=== PATIENT | female | born 1935 | race Native Hawaiian/Other Pacific Islander ===

== ENCOUNTER 2016-08-21 09:22 | Inpatient (IN) | payer OTHER ==
[~2016-08-21 09:22] MED LIST: ACYCLOVIR800 MG OR; ARICEPT ODT10 MG OR; CALCIUM + D600 MG OR; CARB25TA29 PO; CLON0.1T16 PO; DOXE25CA18 PO; ELIQUIS5 MG OR; FURO20TA67 PO; FURO40TA93 PO; HYDR12.54 PO; HYDR25TA60 PO; KLOR-CON M2020 MEQ OR; LIPITOR40 MG PO; MAG-OXIDE400 MG OR; METF500T PO; MULTI VITAMIN D1 TAB PO; NAMENDA XR28 MG OR; OMEP20CA PO; ONDA4TAB3 PO; POTA20TA4 PO; ROBITUSS10 OR; SENNA-PLUS1 TAB OR; SYNTHROID PO; SYNTHROID175 MCG PO; TYLENOL EXTRA500 MG OR; ZANTAC 75 PO
== END 2016-09-21 08:00 | disposition still patient (30) ==
LOC: PAVB 09:22
PROVIDERS: ADMIT Family Medicine
DX: Z51.89 Encounter for other specified aftercare (principal)

== ENCOUNTER 2016-09-21 09:00 | Inpatient (IN) | payer OTHER | END 2016-10-22 10:14 | disposition still patient (30) | LOC: PAVB 09:00 | PROVIDERS: ADMIT Family Medicine | DX: Z51.89 Encounter for other specified aftercare (principal) ==

== ENCOUNTER 2016-10-22 10:33 | Inpatient (IN) | payer OTHER | END 2016-11-19 09:39 | disposition still patient (30) | LOC: PAVB 10:33 | PROVIDERS: ADMIT Family Medicine | DX: Z51.89 Encounter for other specified aftercare (principal) ==

== ENCOUNTER 2016-10-24 06:47 | Outpatient (CLI) | payer OTHER | END 2016-10-24 07:47 | disposition home or self-care (01) | LOC: LAB 06:47 | DX: E11.9 Type 2 diabetes mellitus without complications (principal) | CPT/HCPCS: 36415; 83036 ==

== ENCOUNTER 2016-11-04 05:14 | Outpatient (CLI) | payer OTHER | END 2016-11-04 06:14 | disposition home or self-care (01) | LOC: LAB 05:14 | DX: R19.7 Diarrhea, unspecified (principal) | CPT/HCPCS: 82272; 87045; 87046; 87205; 87328; 87329; 87493; 87798; 87899 ==

== ENCOUNTER 2016-11-06 14:41 | Outpatient (CLI) | payer OTHER ==
[2016-11-06 15:17] LABS: PLATELET COUNT 294 K/uL (152-353)
[2016-11-06 15:34] LABS: POTASSIUM 4.6 mmol/L (3.6-5.2)
== END 2016-11-06 19:18 | disposition home or self-care (01) ==
LOC: LAB 14:41
PROVIDERS: Family Medicine
DX: A04.5 Campylobacter enteritis (principal)
CPT/HCPCS: 80053; 85027

== ENCOUNTER 2016-11-13 03:15 | Outpatient (CLI) | payer OTHER | END 2016-11-13 19:20 | disposition home or self-care (01) | LOC: LAB 03:15 | PROVIDERS: Family Medicine | DX: I10 Essential (primary) hypertension (principal) | CPT/HCPCS: 80053 ==

== ENCOUNTER 2016-11-19 10:22 | Inpatient (IN) | payer OTHER | END 2016-12-20 08:06 | disposition still patient (30) | LOC: PAVB 10:22 | PROVIDERS: ADMIT Family Medicine | DX: Z51.89 Encounter for other specified aftercare (principal) ==

== ENCOUNTER 2016-12-20 09:20 | Inpatient (IN) | payer OTHER | END 2017-01-19 09:08 | disposition still patient (30) | LOC: PAVB 09:20 | PROVIDERS: ADMIT Family Medicine | DX: Z51.89 Encounter for other specified aftercare (principal) ==

== ENCOUNTER 2017-01-05 16:28 | Outpatient (CLI) | payer OTHER | END 2017-01-05 19:29 | disposition home or self-care (01) | LOC: LAB 16:28 | DX: Z16.24 Resistance to multiple antibiotics (principal) | CPT/HCPCS: 87081 ==

== ENCOUNTER 2017-01-14 20:52 | Outpatient (CLI) | payer OTHER | END 2017-01-14 22:00 | disposition home or self-care (01) | LOC: RAD 20:52 → LAB 20:52 | DX: R10.817 Generalized abdominal tenderness (principal); R14.0 Abdominal distension (gaseous) | CPT/HCPCS: 81000; 87088 ==

== ENCOUNTER 2017-01-16 11:05 | Outpatient (CLI) | payer OTHER ==
[2017-01-16 11:28] LABS: POTASSIUM 4.8 mmol/L (3.6-5.2); SODIUM 137 mmol/L (136-145)
== END 2017-01-16 19:10 | disposition home or self-care (01) ==
LOC: LAB 11:05
PROVIDERS: Family Medicine
DX: R10.84 Generalized abdominal pain (principal)
CPT/HCPCS: 36415; 80053; 83735

== ENCOUNTER 2017-01-19 09:45 | Inpatient (IN) | payer OTHER | END 2017-02-19 09:31 | disposition still patient (30) | LOC: PAVB 09:45 | PROVIDERS: ADMIT Family Medicine | DX: Z51.89 Encounter for other specified aftercare (principal) ==

== ENCOUNTER 2017-01-21 11:46 | Outpatient (CLI) | payer OTHER ==
[2017-01-21 11:58] LABS: PLATELET COUNT 234 K/uL (152-353)
[2017-01-21 12:43] LABS: POTASSIUM 4.3 mmol/L (3.6-5.2); SODIUM 139 mmol/L (136-145)
== END 2017-01-21 19:15 | disposition home or self-care (01) ==
LOC: LAB 11:46
PROVIDERS: Family Medicine
DX: E03.9 Hypothyroidism, unspecified (principal); I10 Essential (primary) hypertension; E11.9 Type 2 diabetes mellitus without complications
CPT/HCPCS: 80053; 83036; 84443; 85027

== ENCOUNTER 2017-01-22 11:50 | Outpatient (CLI) | payer OTHER | END 2017-01-22 13:00 | disposition home or self-care (01) | LOC: LAB 11:50 | DX: E03.8 Other specified hypothyroidism (principal) | CPT/HCPCS: 84439 ==

== ENCOUNTER 2017-02-09 04:43 | Outpatient (CLI) | payer OTHER | END 2017-02-09 06:00 | disposition home or self-care (01) | LOC: LAB 04:43 | DX: E83.49 Other disorders of magnesium metabolism (principal) | CPT/HCPCS: 36415; 83735 ==

== ENCOUNTER 2017-02-19 09:47 | Inpatient (IN) | payer OTHER | END 2017-03-21 15:20 | disposition still patient (30) | LOC: PAVB 09:47 | PROVIDERS: ADMIT Family Medicine | DX: Z51.89 Encounter for other specified aftercare (principal) ==

== ENCOUNTER 2017-02-23 10:42 | Outpatient (CLI) | payer OTHER | END 2017-02-23 19:48 | disposition home or self-care (01) | LOC: LAB 10:42 | DX: M81.0 Age-related osteoporosis without current pathological fracture (principal) | CPT/HCPCS: 82310 ==

== ENCOUNTER 2017-03-21 15:33 | Inpatient (IN) | payer OTHER ==
[2017-03-31] MEDS ORDERED: FERR325T5 PO (17:36)
[2017-03-31] MEDS ORDERED: LEVO0.0529 PO (17:37)
[2017-03-31] MEDS ORDERED: SIMV10TA PO (17:38)
[2017-03-31] MEDS ORDERED: ASCO500T18 PO (17:39)
== END 2017-04-21 09:41 | disposition still patient (30) ==
LOC: PAVB 15:33
PROVIDERS: ADMIT Family Medicine
DX: Z51.89 Encounter for other specified aftercare (principal)

== ENCOUNTER 2017-03-31 14:53 | Outpatient (CLI) | payer OTHER ==
[2017-03-31 15:07] LABS: PLATELET COUNT 155 K/uL (152-353)
[2017-03-31 15:18] LABS: POTASSIUM 4.6 mmol/L (3.6-5.2)
[2017-03-31] MEDS ORDERED: FERR325T5 PO (17:36)
[2017-03-31] MEDS ORDERED: LEVO0.0529 PO (17:37)
[2017-03-31] MEDS ORDERED: SIMV10TA PO (17:38)
[2017-03-31] MEDS ORDERED: ASCO500T18 PO (17:39)
== END 2017-03-31 19:39 | disposition home or self-care (01) ==
LOC: LAB 14:53
PROVIDERS: Family Medicine
DX: R41.82 Altered mental status, unspecified (principal); R50.9 Fever, unspecified
CPT/HCPCS: 80053; 81000; 83735; 85027; 87077; 87086; 87088; 87186

== ENCOUNTER 2017-03-31 16:27 | Inpatient (IN) | payer OTHER ==
[~2017-03-31] VITALS: Ht 162.6 cm; Wt 71.0 kg
[2017-03-31 16:30] VITALS: BP 138/86; TEMP 100
[2017-03-31] MEDS ORDERED: FERR325T5 PO (17:36)
[2017-03-31] MEDS ORDERED: LEVO0.0529 PO (17:37)
[2017-03-31] MEDS ORDERED: SIMV10TA PO (17:38)
[2017-03-31] MEDS ORDERED: ASCO500T18 PO (17:39)
[2017-03-31 18:36] VITALS: BP 143/82; TEMP 97.7; Ht 162.6 cm; Wt 71.0 kg
[2017-03-31 20:00] VITALS: BP 138/75; TEMP 97.5
[2017-04-01 00:14] VITALS: BP 146/73; TEMP 98.2
[2017-04-01 04:00] VITALS: BP 158/75; TEMP 97.6
[2017-04-01 06:39] LABS: PLATELET COUNT 129 K/uL (152-353)
[2017-04-01 07:16] LABS: POTASSIUM 3.7 mmol/L (3.6-5.2)
[2017-04-01 08:00] VITALS: BP 146/92; TEMP 99.7
[2017-04-01 12:00] VITALS: BP 140/92; TEMP 99.3
[2017-04-01 16:00] VITALS: BP 133/73; TEMP 99.6
[2017-04-01 20:27] VITALS: BP 149/78; TEMP 99
[2017-04-02 00:16] VITALS: BP 121/54; TEMP 98.4
[2017-04-02 04:00] VITALS: BP 119/67; TEMP 97.7
[2017-04-02 05:20] LABS: PLATELET COUNT 125 K/uL (152-353)
[2017-04-02 08:00] VITALS: BP 116/53; TEMP 98.1
[2017-04-02 11:31] LABS: POTASSIUM 3.5 mmol/L (3.6-5.2)
[2017-04-02 12:00] VITALS: BP 110/62; TEMP 98.2
[2017-04-02 15:54] VITALS: BP 119/62; TEMP 98.6
[2017-04-02 20:00] VITALS: BP 135/66; TEMP 98.7
[2017-04-03] VITALS: BP 134/74; TEMP 98.5
[2017-04-03 04:00] VITALS: BP 153/71; TEMP 99.2
[2017-04-03 05:16] LABS: PLATELET COUNT 133 K/uL (152-353)
[2017-04-03 05:35] LABS: POTASSIUM 4.6 mmol/L (3.6-5.2)
[2017-04-03 07:55] VITALS: BP 157/73; TEMP 98.4
[2017-04-03 11:50] VITALS: BP 145/86; TEMP 98.1
[2017-04-03 15:39] VITALS: BP 147/67; TEMP 97.9
[2017-04-03 20:00] VITALS: BP 153/50; TEMP 98.2
[2017-04-04] VITALS: BP 123/64; TEMP 97.5
[2017-04-04 04:00] VITALS: BP 132/71; TEMP 97.9
[2017-04-04 06:50] LABS: PLATELET COUNT 135 K/uL (152-353)
[2017-04-04 07:28] LABS: POTASSIUM 4.5 mmol/L (3.6-5.2); SODIUM 145 mmol/L (136-145)
[2017-04-04 08:00] VITALS: BP 143/66; TEMP 98
== END 2017-04-04 12:48 | DRG 689 ==
LOC: ED 16:27 → MED/SURG 17:15
PROVIDERS: Emergency Medicine
DX: N39.0 Urinary tract infection, site not specified (principal); G93.41 Metabolic encephalopathy; E87.0 Hyperosmolality and hypernatremia; E86.0 Dehydration; B96.20 Unspecified Escherichia coli [E. coli] as the cause of diseases classified elsewhere; I48.91 Unspecified atrial fibrillation; I10 Essential (primary) hypertension; E03.8 Other specified hypothyroidism
CPT/HCPCS: 36415; 80053; 82436; 82570; 83735; 84300; 84443; 84540; 85027; 87015; 87045; 87205; 87324; 87328; 87329; 87449; 87899; 96365; 96372; 99284; J0696; J1650; J3490

== ENCOUNTER 2017-04-21 10:02 | Inpatient (IN) | payer OTHER ==
[~2017-04-21 10:02] MED LIST changes: +ASCO500T18 PO; +FERR325T5 PO; +LEVO0.0529 PO; +SIMV10TA PO
== END 2017-05-22 08:40 | disposition still patient (30) ==
LOC: PAVB 10:02
PROVIDERS: ADMIT Family Medicine
DX: Z51.89 Encounter for other specified aftercare (principal)

== ENCOUNTER 2017-04-22 06:37 | Outpatient (CLI) | payer OTHER | END 2017-04-22 19:40 | disposition home or self-care (01) | LOC: LAB 06:37 | DX: E11.9 Type 2 diabetes mellitus without complications (principal) | CPT/HCPCS: 36415; 83036 ==

== ENCOUNTER 2017-05-05 14:38 | Outpatient (CLI) | payer OTHER | END 2017-05-05 15:40 | disposition home or self-care (01) | LOC: LAB 14:38 | DX: N89.8 Other specified noninflammatory disorders of vagina (principal); R50.9 Fever, unspecified | CPT/HCPCS: 81000; 87070; 87077; 87186 ==

== ENCOUNTER 2017-05-06 17:13 | Outpatient (CLI) | payer OTHER ==
[2017-05-06 18:39] LABS: PLATELET COUNT 286 K/uL (152-353)
[2017-05-06 18:54] LABS: POTASSIUM 4.4 mmol/L (3.6-5.2); SODIUM 144 mmol/L (136-145)
== END 2017-05-06 19:58 | disposition home or self-care (01) ==
LOC: RAD 17:13 → LABW 17:13
PROVIDERS: Family Medicine
DX: R10.84 Generalized abdominal pain (principal); R50.9 Fever, unspecified
CPT/HCPCS: 80053; 82150; 83690; 83735; 85027

== ENCOUNTER 2017-05-06 21:25 | Outpatient (CLI) | payer OTHER | END 2017-05-06 21:51 | disposition home or self-care (01) | LOC: LAB 21:25 | DX: R10.84 Generalized abdominal pain (principal); R50.9 Fever, unspecified | CPT/HCPCS: 82272; 87015; 87040; 87045; 87205; 87324; 87328; 87329; 87449; 87899 ==

== ENCOUNTER 2017-05-22 09:02 | Inpatient (IN) | payer OTHER | END 2017-06-21 10:28 | disposition still patient (30) | LOC: PAVB 09:02 | PROVIDERS: ADMIT Internal Medicine | DX: R13.12 Dysphagia, oropharyngeal phase (principal); Z93.1 Gastrostomy status; Z43.1 Encounter for attention to gastrostomy; Z87.440 Personal history of urinary (tract) infections; M62.81 Muscle weakness (generalized); I51.7 Cardiomegaly; G20 Parkinson's disease; F20.0 Paranoid schizophrenia; M21.6X9 Other acquired deformities of unspecified foot; F01.51 Vascular dementia, unspecified severity, with behavioral disturbance ==

== ENCOUNTER 2017-06-13 18:10 | Inpatient (IN) | payer OTHER ==
[~2017-06-13] VITALS: Ht 165.1 cm; Wt 61.3 kg
[2017-06-13 18:15] VITALS: BP 125/62; TEMP 97.9
[2017-06-13 21:19] VITALS: BP 119/61; TEMP 97.6
[2017-06-13 23:08] VITALS: BP 114/59; TEMP 97.6
[2017-06-14] VITALS (16 sets, daily range): BP systolic 114–187; BP diastolic 49–95; TEMP 97.5–99.3; Ht 165.1 cm; Wt 61.3 kg
[2017-06-14 05:21] LABS: PLATELET COUNT 113 K/uL (152-353)
[2017-06-14 19:27] LABS: POTASSIUM 3.5 mmol/L (3.6-5.2)
[2017-06-15] VITALS (25 sets, daily range): BP systolic 142–170; BP diastolic 48–87; TEMP 97.2–99.5
[2017-06-15 03:43] LABS: POTASSIUM 3.1 mmol/L (3.6-5.2)
[2017-06-15 06:40] LABS: PLATELET COUNT 103 K/uL (152-353)
[2017-06-15 06:49] LABS: POTASSIUM 3.1 mmol/L (3.6-5.2)
[2017-06-16] VITALS (23 sets, daily range): BP systolic 91–143; BP diastolic 44–84; TEMP 97.9–98.7
[2017-06-16 06:28] LABS: PLATELET COUNT 114 K/uL (152-353)
[2017-06-16 07:01] LABS: POTASSIUM 2.4 mmol/L (3.6-5.2)
[2017-06-16 19:15] LABS: POTASSIUM 3.5 mmol/L (3.6-5.2)
[2017-06-17] VITALS (34 sets, daily range): BP systolic 92–157; BP diastolic 48–76; TEMP 97.9–99.3
[2017-06-17 06:30] LABS: PLATELET COUNT 82 K/uL (152-353)
[2017-06-17 08:49] LABS: POTASSIUM 2.6 mmol/L (3.6-5.2)
[2017-06-18] VITALS (24 sets, daily range): BP systolic 98–162; BP diastolic 58–92; TEMP 97.9–99.2
[2017-06-18 07:02] LABS: PLATELET COUNT 125 K/uL (152-353)
[2017-06-18 07:29] LABS: POTASSIUM 2.9 mmol/L (3.6-5.2)
[2017-06-19] VITALS (14 sets, daily range): BP systolic 117–164; BP diastolic 45–87; TEMP 98.3–98.7
[2017-06-19 06:50] LABS: PLATELET COUNT 184 K/uL (152-353)
[2017-06-19 07:01] LABS: POTASSIUM 3.5 mmol/L (3.6-5.2); SODIUM 145 mmol/L (136-145)
== END 2017-06-19 13:55 | DRG 640 ==
LOC: ED 18:10 → MED/SURG 20:45 → ICU 06-14 16:35
PROVIDERS: Family Medicine; Internal Medicine; ADMIT Emergency Medicine
PROC: 0DH63UZ Insertion of Feeding Device into Stomach, Percutaneous Approach (ICD-10-PCS; principal; 2017-06-16)
DX: E87.0 Hyperosmolality and hypernatremia (principal); K56.2 Volvulus; N39.0 Urinary tract infection, site not specified; K56.69 Other intestinal obstruction; I10 Essential (primary) hypertension; E03.8 Other specified hypothyroidism; G30.8 Other Alzheimer's disease; F02.80 Dementia in other diseases classified elsewhere, unspecified severity, without behavioral disturbance, psychotic disturbance, mood disturbance, and anxiety; K21.9 Gastro-esophageal reflux disease without esophagitis; E11.9 Type 2 diabetes mellitus without complications; K52.89 Other specified noninfective gastroenteritis and colitis; E87.6 Hypokalemia; Z86.73 Personal history of transient ischemic attack (TIA), and cerebral infarction without residual deficits; B96.20 Unspecified Escherichia coli [E. coli] as the cause of diseases classified elsewhere; E86.0 Dehydration; R41.82 Altered mental status, unspecified
CPT/HCPCS: 36415; 36591; 51702; 74022; 80048; 80053; 81000; 82272; 82962; 83735; 84100; 84443; 84478; 85027; 87040; 87077; 87086; 87088; 87186; 93005; 94760; 96365; 99284; J0610; J0696; J1450; J2001; J2704; J3010; J3411; J3475; J3480; J3490; J7120

== ENCOUNTER 2017-06-21 10:33 | Inpatient (IN) | payer OTHER | END 2017-07-22 12:55 | disposition still patient (30) | LOC: PAVB 10:33 | PROVIDERS: ADMIT Internal Medicine | DX: R13.12 Dysphagia, oropharyngeal phase (principal); Z93.1 Gastrostomy status; Z43.1 Encounter for attention to gastrostomy; Z87.440 Personal history of urinary (tract) infections; M62.81 Muscle weakness (generalized); I51.7 Cardiomegaly; G20 Parkinson's disease; F20.0 Paranoid schizophrenia; M21.6X9 Other acquired deformities of unspecified foot; F01.51 Vascular dementia, unspecified severity, with behavioral disturbance ==

== ENCOUNTER 2017-07-22 13:33 | Inpatient (IN) | payer OTHER | END 2017-08-21 09:17 | disposition still patient (30) | LOC: PAVB 13:33 | PROVIDERS: ADMIT Internal Medicine ==

== ENCOUNTER 2017-07-27 08:43 | Outpatient (CLI) | payer OTHER ==
[2017-07-27 08:58] LABS: PLATELET COUNT 308 K/uL (152-353)
[2017-07-27 09:26] LABS: POTASSIUM 4.6 mmol/L (3.6-5.2); SODIUM 137 mmol/L (136-145)
== END 2017-07-27 09:45 | disposition home or self-care (01) ==
LOC: LAB 08:43
PROVIDERS: Internal Medicine
DX: E11.9 Type 2 diabetes mellitus without complications (principal); I10 Essential (primary) hypertension; E03.8 Other specified hypothyroidism; M81.0 Age-related osteoporosis without current pathological fracture
CPT/HCPCS: 80053; 80061; 83036; 83735; 84443; 85027

== ENCOUNTER 2017-07-29 17:31 | Outpatient (CLI) | payer OTHER | END 2017-07-29 19:03 | disposition home or self-care (01) | LOC: LAB 17:31 | DX: R19.5 Other fecal abnormalities (principal) | CPT/HCPCS: 87015; 87045; 87205; 87324; 87328; 87329; 87449; 87899 ==

== ENCOUNTER 2017-07-30 13:19 | Outpatient (CLI) | payer OTHER | END 2017-07-30 19:14 | disposition home or self-care (01) | LOC: RAD 13:19 | DX: Z43.1 Encounter for attention to gastrostomy (principal) ==

== ENCOUNTER 2017-07-31 16:32 | Inpatient (IN) | payer OTHER ==
[~2017-07-31] VITALS: Ht 165.1 cm; Wt 67.2 kg
--- NOTE | 2017-07-31 16:17 | NUR ---
Pt. ADMITTED TO ROOM [address] A[address]B. ABD DISTENDED AND FIRM.
[2017-07-31 18:36] LABS: PLATELET COUNT 319 K/uL (152-353)
[2017-07-31 18:48] LABS: POTASSIUM 4.4 mmol/L (3.6-5.2); SODIUM 142 mmol/L (136-145)
[2017-07-31 18:57] VITALS: BP 150/73; TEMP 98.2; Ht 165.1 cm; Wt 67.2 kg
[2017-07-31 20:00] VITALS: BP 144/78; TEMP 98.3
--- NOTE | 2017-07-31 20:57 | NUR ---
1745 TWO SMALL 0.5 INCH LINEAR PRESSURE SORES NOTED TO RIGHT HEEL UPON ADMISSION ASSESSMENT. UNABLE TO STAGE DUE TO ESCHAR PRESENT. NO DRAINAGE NOTED. OLD SMALL LINEAR SKIN TEAR NOTED TO LEFT FA. INTACT WITH STERI STRIP. NOTIFIED PRIMARY NURSE, RENÉ MCFADDEN RN.
[2017-08-01] VITALS: BP 171/72; TEMP 98.8
[2017-08-01 04:00] VITALS: BP 182/84; TEMP 99
[2017-08-01 08:00] VITALS: BP 133/56; TEMP 98.9
[2017-08-01 12:00] VITALS: BP 161/73; TEMP 98.8
[2017-08-01 16:00] VITALS: BP 178/56; TEMP 98.9
[2017-08-01 20:00] VITALS: BP 177/85; TEMP 99.2
[2017-08-02] VITALS: BP 156/94; TEMP 99.3
[2017-08-02 04:00] VITALS: BP 166/93; TEMP 99.6
--- NOTE | 2017-08-02 07:30 | NUR ---
DR. AYOUB HERE TO SEE PATIENT. NEW ORDERS NOTED. PATIENT IS RESTING IN BED. PATIENT IS ALERT AND MAKES EYE CONTACT. NO DISTRESS OR SIGNS OF DISCOMFORT.
[2017-08-02 08:00] VITALS: BP 123/81; TEMP 98.8
[2017-08-02 09:12] LABS: POTASSIUM 3.3 mmol/L (3.6-5.2); SODIUM 141 mmol/L (136-145)
--- NOTE | 2017-08-02 09:30 | NUR ---
PATIENT'S SON IS AT BEDSIDE. EXPLAINED TO HIM THE PLAN OF CARE. HE VERBALIZES UNDERSTANDING AND IS IN AGREEMENT.
[2017-08-02 09:45] LABS: PLATELET COUNT 374 K/uL (152-353)
[2017-08-02 12:00] VITALS: BP 146/61; TEMP 98.6
[2017-08-02 16:00] VITALS: BP 149/64; TEMP 97.4
[2017-08-02 20:00] VITALS: BP 139/67; TEMP 98.8
[2017-08-03] VITALS: BP 140/81; TEMP 99.2
[2017-08-03 04:00] VITALS: BP 139/65; TEMP 98.9
[2017-08-03 05:24] LABS: PLATELET COUNT 288 K/uL (152-353)
[2017-08-03 05:35] LABS: POTASSIUM 3.1 mmol/L (3.6-5.2); SODIUM 138 mmol/L (136-145)
[2017-08-03 08:00] VITALS: BP 128/84; TEMP 98
--- NOTE | 2017-08-03 08:18 | NUR ---
PT REPOSTITIONED TO LEFT SIDE AND BRIEF CHANGED AT THIS TIME. (VOID X1 AND SMALL BM X1, DARK/GREEN IN COLOR) NAD NOTED.
--- NOTE | 2017-08-03 10:30 | NUR ---
DR. AYOUB HERE TO SEE PT. NEW ORDERS WROTE AND FOLLOWED OUT.
--- NOTE | 2017-08-03 10:50 | NUR ---
IV SITE LEAKING SO IV D/C'D. DR AYOUB STATED TO WAIT BEFORE RESTARTING IV B/C PT MAY BE GOING BACK [facility].
--- NOTE | 2017-08-03 11:30 | NUR ---
PT TOLERATED FEEDING WELL. (1/2 CAN OF ENSURE PLUS) BREIF CHANGED (VOID X1 AND STOOL X1, STOOL DARK IN COLOR AND LOOSE IN CONSISTANCY). BED BATH GIVEN, MOUTH CARE COMPLETE AND LINEN CHANGED. PT TOLERATED WELL AND NAD NOTED.
[2017-08-03 12:00] VITALS: BP 114/72; TEMP 98.1
[2017-08-03 16:00] VITALS: BP 116/84; TEMP 98.8
[2017-08-03 20:11] VITALS: TEMP 98.8
[2017-08-04] VITALS: BP 196/91; TEMP 99.4
--- NOTE | 2017-08-04 01:30 | NUR ---
08/03/17 2100 ENSURE 1/2 CAN GIVEN PER G-TUBE WITH 120ML FLUSH TOLERATED WELL.CC 08/03/17 2300 TURNED AND REPOSTIONED BRIEF CAHNGED WITH CLEAR URINE LG AMOUNT TOLERATED WELL.CC
--- NOTE | 2017-08-04 01:38 | NUR ---
08/04/17 0130 G-TUBE FEEDING GIVEN ENSURE 1/2 CAN FLUSED WITH 60ML. TOLERATED WELL.CC
[2017-08-04 04:00] VITALS: BP 144/77; TEMP 99.1
--- NOTE | 2017-08-04 06:34 | NUR ---
08/04/17 0500 PEG TUBE FEEDING GIVEN FLUSHED WITH 60ML WATER TOLERATED WELL.CC 08/04/17 0620 TURNED AND REPOSTIONED CHANGED BRIEF WITH MODERATE STOOL AND URINE. MOUTHCARE GIVEN VASELINE APPLIED TO LIPS.CC
[2017-08-04 07:58] VITALS: BP 151/74; TEMP 99.23
--- NOTE | 2017-08-04 08:00 | NUR ---
DR AYOUB MADE ROUNDS WITH PT. STATES PT WILL STAY ANOTHER NIGHT AND POSSIBLY [facility].
--- NOTE | 2017-08-04 08:15 | NUR ---
PT TOLERATED FEEDING THROUGH PEG TUBE WELL. (1/2 CAN OF ENSURE PLUS) NO PROBLEMS NOTED.
[2017-08-04 09:33] LABS: SODIUM 135 mmol/L (136-145)
[2017-08-04 12:00] VITALS: BP 145/73; TEMP 99.6
[2017-08-04 16:00] VITALS: BP 134/77; TEMP 98.8
[2017-08-04 20:00] VITALS: BP 143/71; TEMP 98.2
[2017-08-05] VITALS: BP 152/63; TEMP 98.7
--- NOTE | 2017-08-05 01:39 | NUR ---
08/04/17 2100 G-TUBE FEEDING ENSURE PLUS WITH 120ML FLUSH WATER GIVEN TOLERATED WELL.CC
[2017-08-05 04:00] VITALS: BP 116/53; TEMP 97.8
--- NOTE | 2017-08-05 06:29 | NUR ---
08/05/17 0200 G-TUBE FEEDING GIVEN 1/2 CAN ENSURE PLUS FLUSHED WITH TOTAL 120ML WATER TOLERATED WELL.CC 08/05/17 0530 G-TUBE FEEDING GIVEN ENSURE 1/2 CAN GIVEN WITH FLUSH. TURNED REPOSTIONED,CC
--- NOTE | 2017-08-05 06:41 | NUR ---
08/05/17 9908 MOUTHCARE GIVEN TOLERATED WELL.CC
[2017-08-05 08:00] VITALS: BP 142/80; TEMP 98.8
[2017-08-05 11:51] VITALS: BP 145/66; TEMP 98.6
[2017-08-05 16:00] VITALS: BP 148/72; TEMP 98.6
[2017-08-05 20:00] VITALS: BP 154/90; TEMP 99.4
[2017-08-06] VITALS: BP 134/62; TEMP 99.4
[2017-08-06 04:00] VITALS: BP 92/50; TEMP 98.9
[2017-08-06 08:00] VITALS: BP 117/53; TEMP 99
--- NOTE | 2017-08-06 10:30 | NUR ---
REPORT CALLED TO RYNE MORENO.
[2017-08-06 11:52] VITALS: BP 122/64; TEMP 99
--- NOTE | 2017-08-06 12:54 | NUR ---
Pt. CARRIED TO [facility] BED.
== END 2017-08-06 12:20 | disposition home or self-care (01) | DRG 389 ==
LOC: MED/SURG 16:32
PROVIDERS: ADMIT Internal Medicine
DX: K56.7 Ileus, unspecified (principal); K59.39 Other megacolon; Z43.1 Encounter for attention to gastrostomy; G30.8 Other Alzheimer's disease; F02.80 Dementia in other diseases classified elsewhere, unspecified severity, without behavioral disturbance, psychotic disturbance, mood disturbance, and anxiety; I10 Essential (primary) hypertension; K21.9 Gastro-esophageal reflux disease without esophagitis; E03.8 Other specified hypothyroidism; E78.00 Pure hypercholesterolemia, unspecified; M81.8 Other osteoporosis without current pathological fracture; E87.6 Hypokalemia; R19.5 Other fecal abnormalities
CPT/HCPCS: 36415; 80048; 80053; 81000; 82948; 83735; 84100; 84478; 85027; 87015; 87045; 87205; 87324; 87328; 87329; 87449; 87899; 96360; 96361; 96365; 96366; J2765

== ENCOUNTER 2017-08-15 11:39 | Outpatient (CLI) | payer OTHER | END 2017-08-15 12:40 | disposition home or self-care (01) | LOC: RAD 11:39 | DX: R05 Cough (principal); R06.2 Wheezing ==

== ENCOUNTER 2017-08-21 09:31 | Inpatient (IN) | payer OTHER | END 2017-09-21 09:29 | disposition still patient (30) | LOC: PAVB 09:31 | PROVIDERS: ADMIT Internal Medicine ==

== ENCOUNTER 2017-08-27 05:38 | Outpatient (CLI) | payer OTHER | END 2017-08-27 19:06 | disposition home or self-care (01) | LOC: LAB 05:38 | DX: M81.0 Age-related osteoporosis without current pathological fracture (principal); E03.9 Hypothyroidism, unspecified | CPT/HCPCS: 36415; 82310; 84443 ==

== ENCOUNTER 2017-09-21 09:55 | Inpatient (IN) | payer OTHER | END 2017-10-22 09:47 | disposition still patient (30) | LOC: PAVB 09:55 | PROVIDERS: ADMIT Internal Medicine ==

== ENCOUNTER 2017-10-22 10:29 | Inpatient (IN) | payer OTHER | END 2017-11-19 09:17 | disposition still patient (30) | LOC: PAVB 10:29 | PROVIDERS: ADMIT Internal Medicine ==

== ENCOUNTER 2017-10-27 05:53 | Outpatient (CLI) | payer OTHER | END 2017-10-27 20:03 | disposition home or self-care (01) | LOC: LAB 05:53 | DX: E11.9 Type 2 diabetes mellitus without complications (principal) | CPT/HCPCS: 83036 ==

== ENCOUNTER 2017-11-19 09:47 | Inpatient (IN) | payer OTHER | END 2017-12-20 08:00 | disposition still patient (30) | LOC: PAVB 09:47 | PROVIDERS: ADMIT Internal Medicine ==

== ENCOUNTER 2017-11-23 15:35 | Outpatient (CLI) | payer OTHER | END 2017-11-23 19:23 | disposition home or self-care (01) | LOC: LAB 15:35 | DX: L08.89 Other specified local infections of the skin and subcutaneous tissue (principal) | CPT/HCPCS: 87070; 87077; 87185; 87186; 87205 ==

== ENCOUNTER 2017-11-28 14:12 | Outpatient (CLI) | payer OTHER | END 2017-11-28 21:12 | disposition home or self-care (01) | LOC: CT 14:12 | DX: R41.82 Altered mental status, unspecified (principal) | CPT/HCPCS: 81000 ==

== ENCOUNTER 2017-11-29 13:44 | Outpatient (CLI) | payer OTHER ==
[2017-11-29 13:52] LABS: PLATELET COUNT 282 K/uL (152-353)
[2017-11-29 14:07] LABS: POTASSIUM 4.1 mmol/L (3.6-5.2)
== END 2017-11-29 21:35 | disposition home or self-care (01) ==
LOC: LABW 13:44
PROVIDERS: Family Medicine
DX: R41.82 Altered mental status, unspecified (principal)
CPT/HCPCS: 80053; 85027

== ENCOUNTER 2017-12-20 09:00 | Inpatient (IN) | payer OTHER | END 2018-01-19 09:03 | disposition still patient (30) | LOC: PAVB 09:00 | PROVIDERS: ADMIT Internal Medicine ==

== ENCOUNTER 2017-12-24 07:34 | Day surgery (SDC) | payer OTHER | END 2017-12-24 10:05 | LOC: OR 07:34 | PROC: 0DH63UZ Insertion of Feeding Device into Stomach, Percutaneous Approach (ICD-10-PCS; principal; 2017-12-24) | DX: K94.29 Other complications of gastrostomy (principal); K44.9 Diaphragmatic hernia without obstruction or gangrene; K21.9 Gastro-esophageal reflux disease without esophagitis | CPT/HCPCS: J2001; J2704; J3490 ==

== ENCOUNTER 2018-01-19 09:25 | Inpatient (IN) | payer OTHER | END 2018-02-19 08:51 | disposition still patient (30) | LOC: PAVB 09:25 | PROVIDERS: ADMIT Internal Medicine ==

== ENCOUNTER 2018-01-20 06:54 | Outpatient (CLI) | payer OTHER ==
[2018-01-20 08:23] LABS: PLATELET COUNT 242 K/uL (152-353)
[2018-01-20 09:02] LABS: POTASSIUM 4.3 mmol/L (3.6-5.2)
== END 2018-01-20 21:36 | disposition home or self-care (01) ==
LOC: LABW 06:54
PROVIDERS: Internal Medicine
DX: E11.9 Type 2 diabetes mellitus without complications (principal); E03.8 Other specified hypothyroidism; I10 Essential (primary) hypertension
CPT/HCPCS: 80053; 83036; 83735; 84443; 85027

== ENCOUNTER 2018-02-19 09:10 | Inpatient (IN) | payer OTHER | END 2018-03-21 14:18 | disposition still patient (30) | LOC: PAVB 09:10 | PROVIDERS: ADMIT Internal Medicine ==

== ENCOUNTER 2018-02-23 10:23 | Outpatient (CLI) | payer OTHER | END 2018-02-23 22:22 | disposition home or self-care (01) | LOC: LAB 10:23 | DX: M81.0 Age-related osteoporosis without current pathological fracture (principal) | CPT/HCPCS: 82310 ==

== ENCOUNTER 2018-03-21 14:44 | Inpatient (IN) | payer OTHER | END 2018-04-21 08:00 | disposition still patient (30) | LOC: PAVB 14:44 | PROVIDERS: ADMIT Internal Medicine ==

== ENCOUNTER 2018-03-22 03:17 | Outpatient (CLI) | payer OTHER | END 2018-03-22 19:39 | disposition home or self-care (01) | LOC: LAB 03:17 | DX: E03.8 Other specified hypothyroidism (principal) | CPT/HCPCS: 84443 ==

== ENCOUNTER 2018-04-06 13:36 | Outpatient (CLI) | payer OTHER ==
[2018-04-06 14:35] LABS: PLATELET COUNT 331 K/uL (152-353)
== END 2018-04-06 23:50 | disposition home or self-care (01) ==
LOC: LAB 13:36
PROVIDERS: Internal Medicine
DX: R50.9 Fever, unspecified (principal)
CPT/HCPCS: 81000; 85027; 87077; 87086; 87088; 87186

== ENCOUNTER 2018-04-21 09:00 | Inpatient (IN) | payer OTHER | END 2018-05-22 10:17 | disposition still patient (30) | LOC: PAVB 09:00 | PROVIDERS: ADMIT Internal Medicine ==

== ENCOUNTER 2018-04-27 11:36 | Outpatient (CLI) | payer OTHER | END 2018-04-27 19:53 | disposition home or self-care (01) | LOC: LAB 11:36 | DX: E11.9 Type 2 diabetes mellitus without complications (principal) | CPT/HCPCS: 36415; 83036 ==

== ENCOUNTER 2018-05-22 10:52 | Inpatient (IN) | payer OTHER | END 2018-06-21 09:18 | disposition still patient (30) | LOC: PAVB 10:52 | PROVIDERS: ADMIT Internal Medicine ==

== ENCOUNTER 2018-06-21 10:00 | Inpatient (IN) | payer OTHER | END 2018-07-22 08:46 | disposition still patient (30) | LOC: PAVB 10:00 | PROVIDERS: ADMIT Internal Medicine ==

== ENCOUNTER 2018-07-22 05:45 | Outpatient (CLI) | payer OTHER ==
[2018-07-22 08:12] LABS: PLATELET COUNT 245 K/uL (152-353)
[2018-07-22 08:32] LABS: POTASSIUM 3.8 mmol/L (3.6-5.2)
== END 2018-07-22 21:48 | disposition home or self-care (01) ==
LOC: LAB 05:45
PROVIDERS: Internal Medicine
DX: D50.8 Other iron deficiency anemias (principal); E11.9 Type 2 diabetes mellitus without complications; I10 Essential (primary) hypertension; E78.5 Hyperlipidemia, unspecified
CPT/HCPCS: 36415; 80053; 80061; 82728; 83036; 83540; 83735; 84443; 85027

== ENCOUNTER 2018-07-22 09:40 | Inpatient (IN) | payer OTHER | END 2018-08-21 08:31 | disposition still patient (30) | LOC: PAVB 09:40 | PROVIDERS: ADMIT Internal Medicine ==

== ENCOUNTER 2018-08-21 09:03 | Inpatient (IN) | payer OTHER | END 2018-09-21 11:04 | disposition still patient (30) | LOC: PAVB 09:03 | PROVIDERS: ADMIT Internal Medicine ==

== ENCOUNTER 2018-08-23 05:39 | Outpatient (CLI) | payer OTHER | END 2018-08-23 20:23 | disposition home or self-care (01) | LOC: LAB 05:39 | DX: M81.0 Age-related osteoporosis without current pathological fracture (principal) | CPT/HCPCS: 82310 ==

== ENCOUNTER 2018-08-31 10:33 | Outpatient (CLI) | payer OTHER | END 2018-08-31 22:11 | disposition home or self-care (01) | LOC: RAD 10:33 | DX: Z78.0 Asymptomatic menopausal state (principal) ==

== ENCOUNTER 2018-09-21 11:15 | Inpatient (IN) | payer OTHER | END 2018-10-22 10:48 | disposition still patient (30) | LOC: PAVB 11:15 | PROVIDERS: ADMIT Internal Medicine ==

== ENCOUNTER 2018-10-22 11:04 | Inpatient (IN) | payer OTHER | END 2018-11-19 10:16 | disposition still patient (30) | LOC: PAVB 11:04 | PROVIDERS: ADMIT Internal Medicine ==

== ENCOUNTER 2018-10-27 04:51 | Outpatient (CLI) | payer OTHER | END 2018-10-27 19:10 | disposition home or self-care (01) | LOC: LAB 04:51 | DX: E11.9 Type 2 diabetes mellitus without complications (principal) | CPT/HCPCS: 36415; 83036 ==

== ENCOUNTER 2018-11-19 10:31 | Inpatient (IN) | payer OTHER | END 2018-12-20 10:36 | disposition still patient (30) | LOC: PAVB 10:31 | PROVIDERS: ADMIT Internal Medicine ==

== ENCOUNTER 2018-12-20 11:10 | Inpatient (IN) | payer OTHER | END 2019-01-19 11:11 | disposition still patient (30) | LOC: PAVB 11:10 | PROVIDERS: ADMIT Internal Medicine ==

== ENCOUNTER 2019-01-19 12:14 | Inpatient (IN) | payer OTHER | END 2019-02-19 08:34 | disposition still patient (30) | LOC: PAVB 12:14 | PROVIDERS: ADMIT Internal Medicine | DX: Z51.89 Encounter for other specified aftercare (principal) ==

== ENCOUNTER 2019-01-24 05:44 | Outpatient (CLI) | payer OTHER ==
[2019-01-24 06:20] LABS: PLATELET COUNT 219 K/uL (152-353)
[2019-01-24 07:04] LABS: POTASSIUM 4.4 mmol/L (3.6-5.2)
== END 2019-01-24 20:15 | disposition home or self-care (01) ==
LOC: LAB 05:44
PROVIDERS: Internal Medicine
DX: E11.9 Type 2 diabetes mellitus without complications (principal); E03.8 Other specified hypothyroidism
CPT/HCPCS: 36415; 80053; 83036; 83735; 84443; 85027

== ENCOUNTER 2019-02-19 09:09 | Inpatient (IN) | payer OTHER | END 2019-03-21 09:35 | disposition still patient (30) | LOC: PAVB 09:09 | PROVIDERS: ADMIT Internal Medicine ==

== ENCOUNTER 2019-02-24 09:02 | Outpatient (CLI) | payer OTHER | END 2019-02-24 23:44 | disposition home or self-care (01) | LOC: LAB 09:02 | DX: Z51.81 Encounter for therapeutic drug level monitoring (principal); M81.0 Age-related osteoporosis without current pathological fracture | CPT/HCPCS: 36415; 82310 ==

== ENCOUNTER 2019-03-21 10:37 | Inpatient (IN) | payer OTHER | END 2019-04-21 10:33 | disposition still patient (30) | LOC: PAVB 10:37 | PROVIDERS: ADMIT Internal Medicine ==

== ENCOUNTER 2019-04-21 10:57 | Inpatient (IN) | payer OTHER | END 2019-05-22 16:24 | disposition still patient (30) | LOC: PAVB 10:57 | PROVIDERS: ADMIT Internal Medicine ==

== ENCOUNTER 2019-04-25 03:32 | Outpatient (CLI) | payer OTHER | END 2019-04-25 23:16 | disposition home or self-care (01) | LOC: LAB 03:32 | DX: E11.9 Type 2 diabetes mellitus without complications (principal) | CPT/HCPCS: 83036 ==

== ENCOUNTER 2019-05-22 16:56 | Inpatient (IN) | payer OTHER | END 2019-06-21 09:19 | disposition still patient (30) | LOC: PAVB 16:56 | PROVIDERS: ADMIT Internal Medicine ==

== ENCOUNTER 2019-06-21 10:02 | Inpatient (IN) | payer OTHER | END 2019-07-22 11:08 | disposition still patient (30) | LOC: PAVB 10:02 | PROVIDERS: ADMIT Internal Medicine ==

== ENCOUNTER 2019-07-22 11:24 | Inpatient (IN) | payer OTHER | END 2019-08-21 08:00 | disposition still patient (30) | LOC: PAVB 11:24 | PROVIDERS: ADMIT Internal Medicine ==

== ENCOUNTER 2019-07-26 05:09 | Outpatient (CLI) | payer OTHER ==
[2019-07-26 06:47] LABS: PLATELET COUNT 229 K/uL (152-353)
[2019-07-26 07:04] LABS: POTASSIUM 4.3 mmol/L (3.6-5.2)
== END 2019-07-26 20:29 | disposition home or self-care (01) ==
LOC: LAB 05:09
PROVIDERS: Internal Medicine
DX: I10 Essential (primary) hypertension (principal); E11.21 Type 2 diabetes mellitus with diabetic nephropathy
CPT/HCPCS: 80053; 80061; 83036; 83735; 84443; 85027

== ENCOUNTER 2019-07-28 13:04 | Outpatient (CLI) | payer OTHER | END 2019-07-28 20:45 | disposition home or self-care (01) | LOC: RAD 13:04 | DX: R05 Cough (principal); R06.2 Wheezing ==

== ENCOUNTER 2019-08-21 10:10 | Inpatient (IN) | payer OTHER | END 2019-09-21 08:33 | disposition still patient (30) | LOC: PAVB 10:10 | PROVIDERS: ADMIT Internal Medicine ==

== ENCOUNTER 2019-08-24 05:57 | Outpatient (CLI) | payer OTHER | END 2019-08-24 20:41 | disposition home or self-care (01) | LOC: LAB 05:57 | DX: M81.0 Age-related osteoporosis without current pathological fracture (principal); M89.8X8 Other specified disorders of bone, other site | CPT/HCPCS: 36415; 82310 ==

== ENCOUNTER → 2019-09-14 | Outpatient (CLI) | payer OTHER ==
[2019-09-14 06:02] LABS: PLATELET COUNT 229 K/uL (152-353)
[2019-09-14 06:15] LABS: POTASSIUM 4.6 mmol/L (3.6-5.2)
== END ==
LOC: LAB 04:38
PROVIDERS: Internal Medicine
DX: Z01.818 Encounter for other preprocedural examination (principal)
CPT/HCPCS: 36415; 80053; 85027

== ENCOUNTER 2019-09-15 07:49 | Day surgery (SDC) | payer OTHER ==
[~2019-09-15] VITALS: Ht 30.5 cm; Wt 0.5 kg
== END 2019-09-15 10:51 ==
LOC: OR 07:49
PROC: 0D20XUZ Change Feeding Device in Upper Intestinal Tract, External Approach (ICD-10-PCS; principal; 2019-09-15)
DX: K94.23 Gastrostomy malfunction (principal); K44.9 Diaphragmatic hernia without obstruction or gangrene; Y83.3 Surgical operation with formation of external stoma as the cause of abnormal reaction of the patient, or of later complication, without mention of misadventure at the time of the procedure
CPT/HCPCS: J2001; J2704

== ENCOUNTER 2019-09-21 08:42 | Inpatient (IN) | payer OTHER | END 2019-10-22 09:54 | disposition still patient (30) | LOC: PAVB 08:42 | PROVIDERS: ADMIT Internal Medicine ==

== ENCOUNTER 2019-10-22 10:25 | Inpatient (IN) | payer OTHER | END 2019-11-20 13:13 | disposition still patient (30) | LOC: PAVB 10:25 | PROVIDERS: ADMIT Internal Medicine ==

== ENCOUNTER 2019-10-25 06:09 | Outpatient (CLI) | payer OTHER | END 2019-10-25 22:17 | disposition home or self-care (01) | LOC: LAB 06:09 | DX: E11.9 Type 2 diabetes mellitus without complications (principal) | CPT/HCPCS: 83036 ==

== ENCOUNTER 2019-11-20 13:50 | Inpatient (IN) | payer OTHER | END 2019-12-21 09:38 | disposition still patient (30) | LOC: PAVB 13:50 | PROVIDERS: ADMIT Internal Medicine ==

== ENCOUNTER 2019-12-21 10:05 | Inpatient (IN) | payer OTHER | END 2020-01-20 09:00 | disposition still patient (30) | LOC: PAVB 10:05 | PROVIDERS: ADMIT Internal Medicine ==

== ENCOUNTER 2020-01-20 09:42 | Inpatient (IN) | payer OTHER | END 2020-02-20 09:09 | disposition still patient (30) | LOC: PAVB 09:42 | PROVIDERS: ADMIT Internal Medicine | CPT/HCPCS: 87635; U0002 ==

== ENCOUNTER 2020-01-23 07:21 | Outpatient (CLI) | payer OTHER ==
[2020-01-23 08:23] LABS: PLATELET COUNT 227 K/uL (152-353)
[2020-01-23 12:54] LABS: POTASSIUM 4.3 mmol/L (3.6-5.2)
== END 2020-01-23 19:22 | disposition home or self-care (01) ==
LOC: LAB 07:21
PROVIDERS: Internal Medicine
DX: E11.9 Type 2 diabetes mellitus without complications (principal); E87.6 Hypokalemia; I51.7 Cardiomegaly; E03.8 Other specified hypothyroidism; I12.9 Hypertensive chronic kidney disease with stage 1 through stage 4 chronic kidney disease, or unspecified chronic kidney disease
CPT/HCPCS: 80053; 83036; 83735; 84443; 85027

== ENCOUNTER 2020-02-20 09:26 | Inpatient (IN) | payer OTHER | END 2020-03-21 10:19 | disposition still patient (30) | LOC: PAVB 09:26 | PROVIDERS: ADMIT Internal Medicine | CPT/HCPCS: 87635; U0002 ==

== ENCOUNTER 2020-02-22 05:26 | Outpatient (CLI) | payer OTHER | END 2020-02-22 21:48 | disposition home or self-care (01) | LOC: LAB 05:26 | DX: M81.0 Age-related osteoporosis without current pathological fracture (principal) | CPT/HCPCS: 82310 ==

== ENCOUNTER 2020-03-21 10:53 | Inpatient (IN) | payer OTHER | END 2020-04-21 09:11 | disposition still patient (30) | LOC: PAVB 10:53 | PROVIDERS: ADMIT Internal Medicine | CPT/HCPCS: 87635; U0002 ==

== ENCOUNTER 2020-03-26 16:17 | Outpatient (CLI) | payer OTHER | END 2020-03-26 21:51 | disposition home or self-care (01) | LOC: LAB 16:17 | DX: Z00.00 Encounter for general adult medical examination without abnormal findings (principal); Z79.899 Other long term (current) drug therapy | CPT/HCPCS: 36415; 84443 ==

== ENCOUNTER 2020-04-21 09:29 | Inpatient (IN) | payer OTHER | END 2020-05-22 12:00 | disposition still patient (30) | LOC: PAVB 09:29 | PROVIDERS: ADMIT Internal Medicine | CPT/HCPCS: 87635; U0003 ==

== ENCOUNTER 2020-04-24 11:41 | Outpatient (CLI) | payer OTHER | END 2020-04-24 23:24 | disposition home or self-care (01) | LOC: LAB 11:41 | DX: E11.9 Type 2 diabetes mellitus without complications (principal) | CPT/HCPCS: 83036 ==

== ENCOUNTER 2020-05-22 12:50 | Inpatient (IN) | payer OTHER | END 2020-06-21 11:03 | disposition still patient (30) | LOC: PAVB 12:50 | PROVIDERS: ADMIT Internal Medicine ==

== ENCOUNTER 2020-06-05 09:51 | Outpatient (CLI) | payer OTHER | END 2020-06-05 19:07 | disposition home or self-care (01) | LOC: LAB 09:51 | DX: E03.9 Hypothyroidism, unspecified (principal) | CPT/HCPCS: 84443 ==

== ENCOUNTER 2020-06-21 11:22 | Inpatient (IN) | payer OTHER | END 2020-07-22 08:00 | disposition still patient (30) | LOC: PAVB 11:22 | PROVIDERS: ADMIT Internal Medicine ==

== ENCOUNTER 2020-07-22 09:00 | Inpatient (IN) | payer OTHER | END 2020-08-21 09:58 | disposition still patient (30) | LOC: PAVB 09:00 | PROVIDERS: ADMIT Internal Medicine; ATTEND Internal Medicine ==

== ENCOUNTER 2020-07-25 10:34 | Outpatient (CLI) | payer OTHER ==
[2020-07-25 10:56] LABS: PLATELET COUNT 234 K/uL (152-353)
[2020-07-25 11:27] LABS: POTASSIUM 4.5 mmol/L (3.6-5.2)
== END 2020-07-25 21:51 | disposition home or self-care (01) ==
LOC: LAB 10:34
PROVIDERS: Internal Medicine
DX: I51.7 Cardiomegaly (principal); E11.9 Type 2 diabetes mellitus without complications; I12.9 Hypertensive chronic kidney disease with stage 1 through stage 4 chronic kidney disease, or unspecified chronic kidney disease; E78.49 Other hyperlipidemia; E87.6 Hypokalemia
CPT/HCPCS: 80053; 80061; 83036; 83735; 84443; 85027

== ENCOUNTER 2020-08-05 06:56 | Outpatient (CLI) | payer OTHER | END 2020-08-05 20:34 | disposition home or self-care (01) | LOC: LAB 06:56 | PROVIDERS: ATTEND Internal Medicine | DX: E03.8 Other specified hypothyroidism (principal) | CPT/HCPCS: 84443 ==

== ENCOUNTER 2020-08-21 10:57 | Inpatient (IN) | payer OTHER | END 2020-09-21 09:03 | disposition still patient (30) | LOC: PAVB 10:57 | PROVIDERS: ADMIT Internal Medicine; ATTEND Internal Medicine ==

== ENCOUNTER 2020-08-27 09:23 | Outpatient (CLI) | payer OTHER | END 2020-08-27 19:36 | disposition home or self-care (01) | LOC: LAB 09:23 | PROVIDERS: ATTEND Internal Medicine | DX: M81.0 Age-related osteoporosis without current pathological fracture (principal) | CPT/HCPCS: 82310 ==

== ENCOUNTER 2020-09-21 09:13 | Inpatient (IN) | payer OTHER | END 2020-10-22 14:55 | disposition still patient (30) | LOC: PAVB 09:13 | PROVIDERS: ADMIT Internal Medicine; ATTEND Internal Medicine ==

== ENCOUNTER 2020-10-06 07:14 | Outpatient (CLI) | payer OTHER | END 2020-10-06 19:55 | disposition home or self-care (01) | LOC: LAB 07:14 | PROVIDERS: ATTEND Internal Medicine | DX: E03.8 Other specified hypothyroidism (principal) | CPT/HCPCS: 84443 ==

== ENCOUNTER 2020-10-22 15:05 | Inpatient (IN) | payer OTHER | END 2020-11-19 09:54 | disposition still patient (30) | LOC: PAVB 15:05 | PROVIDERS: ADMIT Internal Medicine; ATTEND Internal Medicine ==

== ENCOUNTER 2020-10-25 10:54 | Outpatient (CLI) | payer OTHER | END 2020-10-25 20:08 | disposition home or self-care (01) | LOC: LAB 10:54 | PROVIDERS: ATTEND Internal Medicine | DX: E11.9 Type 2 diabetes mellitus without complications (principal) | CPT/HCPCS: 83036 ==

== ENCOUNTER 2020-11-19 10:09 | Inpatient (IN) | payer OTHER | END 2020-12-20 10:00 | disposition still patient (30) | LOC: PAVB 10:09 | PROVIDERS: ADMIT Internal Medicine; ATTEND Internal Medicine ==

== ENCOUNTER 2020-12-20 10:29 | Inpatient (IN) | payer OTHER | END 2021-01-19 10:50 | disposition still patient (30) | LOC: PAVB 10:29 | PROVIDERS: ADMIT Internal Medicine; ATTEND Internal Medicine ==

== ENCOUNTER 2021-01-09 10:28 | Outpatient (CLI) | payer OTHER | END 2021-01-09 21:23 | disposition home or self-care (01) | LOC: RAD 10:28 | PROVIDERS: ATTEND Internal Medicine | DX: M81.0 Age-related osteoporosis without current pathological fracture (principal) ==

== ENCOUNTER 2021-01-19 11:04 | Inpatient (IN) | payer OTHER | END 2021-02-19 14:38 | disposition still patient (30) | LOC: PAVB 11:04 | PROVIDERS: ADMIT Internal Medicine; ATTEND Internal Medicine ==

== ENCOUNTER 2021-01-21 09:12 | Outpatient (CLI) | payer OTHER ==
[2021-01-21 10:43] LABS: PLATELET COUNT 239 K/uL (152-353)
[2021-01-21 11:19] LABS: POTASSIUM 4.8 mmol/L (3.6-5.2)
== END 2021-01-21 19:14 | disposition home or self-care (01) ==
LOC: LAB 09:12
PROVIDERS: ATTEND Internal Medicine
DX: E11.9 Type 2 diabetes mellitus without complications (principal); E87.6 Hypokalemia; I51.7 Cardiomegaly; E03.8 Other specified hypothyroidism; I12.9 Hypertensive chronic kidney disease with stage 1 through stage 4 chronic kidney disease, or unspecified chronic kidney disease
CPT/HCPCS: 80053; 83036; 83735; 84443; 85027

== ENCOUNTER 2021-02-19 14:50 | Inpatient (IN) | payer OTHER | END 2021-03-21 08:00 | disposition still patient (30) | LOC: PAVB 14:50 | PROVIDERS: ADMIT Internal Medicine; ATTEND Internal Medicine ==

== ENCOUNTER 2021-03-21 09:00 | Inpatient (IN) | payer OTHER | END 2021-04-21 08:00 | disposition still patient (30) | LOC: PAVB 09:00 | PROVIDERS: ADMIT Internal Medicine; ATTEND Internal Medicine ==

== ENCOUNTER 2021-04-21 09:00 | Inpatient (IN) | payer OTHER | END 2021-05-22 10:17 | disposition still patient (30) | LOC: PAVB 09:00 | PROVIDERS: ADMIT Internal Medicine; ATTEND Internal Medicine ==

== ENCOUNTER 2021-04-24 10:41 | Outpatient (CLI) | payer OTHER | END 2021-04-24 17:51 | disposition home or self-care (01) | LOC: LAB 10:41 | PROVIDERS: ATTEND Internal Medicine | DX: E03.8 Other specified hypothyroidism (principal); E11.9 Type 2 diabetes mellitus without complications | CPT/HCPCS: 83036; 84443 ==

== ENCOUNTER 2021-05-22 13:01 | Inpatient (IN) | payer OTHER | END 2021-06-21 08:42 | disposition still patient (30) | LOC: PAVB 13:01 | PROVIDERS: ADMIT Internal Medicine; ATTEND Internal Medicine ==

== ENCOUNTER 2021-07-24 07:01 | Outpatient (CLI) | payer OTHER ==
[2021-07-24 08:10] LABS: PLATELET COUNT 257 K/uL (152-353)
[2021-07-24 08:43] LABS: POTASSIUM 5.6 mmol/L (3.6-5.2)
== END 2021-07-24 22:34 | disposition home or self-care (01) ==
LOC: LAB 07:01
PROVIDERS: ATTEND Internal Medicine
DX: E11.9 Type 2 diabetes mellitus without complications (principal); I10 Essential (primary) hypertension
CPT/HCPCS: 80053; 80061; 83036; 83735; 84443; 85027

== ENCOUNTER 2021-08-21 10:22 | Inpatient (IN) | payer OTHER | END 2021-09-21 08:22 | disposition still patient (30) | LOC: PAVB 10:22 | PROVIDERS: ADMIT Internal Medicine; ATTEND Internal Medicine ==

== ENCOUNTER 2021-08-26 06:58 | Outpatient (CLI) | payer OTHER | END 2021-08-26 18:56 | disposition home or self-care (01) | LOC: LAB 06:58 | PROVIDERS: ATTEND Internal Medicine | DX: E87.5 Hyperkalemia (principal) | CPT/HCPCS: 84132 ==

== ENCOUNTER 2021-09-11 06:42 | Outpatient (CLI) | payer OTHER | END 2021-09-11 19:43 | disposition home or self-care (01) | LOC: LAB 06:42 | PROVIDERS: ATTEND Internal Medicine | DX: M89.8X8 Other specified disorders of bone, other site (principal) | CPT/HCPCS: 82310 ==

== ENCOUNTER 2021-09-21 08:45 | Inpatient (IN) | payer OTHER | END 2021-10-22 09:30 | disposition still patient (30) | LOC: PAVB 08:45 | PROVIDERS: ADMIT Internal Medicine; ATTEND Internal Medicine ==

== ENCOUNTER 2021-10-22 14:41 | Inpatient (IN) | payer OTHER | END 2021-11-19 08:57 | disposition still patient (30) | LOC: PAVB 14:41 | PROVIDERS: ADMIT Internal Medicine; ATTEND Internal Medicine ==

== ENCOUNTER 2021-10-24 07:04 | Outpatient (CLI) | payer OTHER | END 2021-10-24 21:16 | disposition home or self-care (01) | LOC: LAB 07:04 | PROVIDERS: ATTEND Internal Medicine | DX: E11.9 Type 2 diabetes mellitus without complications (principal) | CPT/HCPCS: 83036 ==

== ENCOUNTER 2021-11-19 12:19 | Inpatient (IN) | payer OTHER | END 2021-12-20 08:41 | disposition still patient (30) | LOC: PAVB 12:19 | PROVIDERS: ADMIT Internal Medicine; ATTEND Internal Medicine ==

== ENCOUNTER 2021-12-20 09:01 | Inpatient (IN) | payer OTHER | END 2022-01-19 09:56 | disposition still patient (30) | LOC: PAVB 09:01 | PROVIDERS: ADMIT Internal Medicine; ATTEND Internal Medicine ==

== ENCOUNTER 2022-01-19 12:36 | Inpatient (IN) | payer OTHER | END 2022-02-19 09:35 | disposition still patient (30) | LOC: PAVB 12:36 | PROVIDERS: ADMIT Internal Medicine; ATTEND Internal Medicine ==

== ENCOUNTER 2022-01-21 09:20 | Outpatient (CLI) | payer OTHER ==
[2022-01-21 09:38] LABS: PLATELET COUNT 199 K/uL (152-353)
[2022-01-21 09:54] LABS: POTASSIUM 4.4 mmol/L (3.6-5.2)
== END 2022-01-21 18:59 | disposition home or self-care (01) ==
LOC: LAB 09:20
PROVIDERS: ATTEND Internal Medicine
DX: E11.9 Type 2 diabetes mellitus without complications (principal); I10 Essential (primary) hypertension
CPT/HCPCS: 80053; 83036; 83735; 84443; 85027

== ENCOUNTER 2022-01-23 16:56 | Outpatient (CLI) | payer OTHER | END 2022-01-23 19:37 | disposition home or self-care (01) | LOC: LAB 16:56 | PROVIDERS: ATTEND Internal Medicine | DX: R19.7 Diarrhea, unspecified (principal) | CPT/HCPCS: 87324; 87449 ==

== ENCOUNTER 2022-01-27 16:12 | Outpatient (CLI) | payer OTHER | END 2022-01-27 19:09 | disposition home or self-care (01) | LOC: LAB 16:12 | PROVIDERS: ATTEND Internal Medicine | DX: R19.7 Diarrhea, unspecified (principal) | CPT/HCPCS: 83630; 87015; 87045; 87328; 87329; 87899 ==

== ENCOUNTER 2022-02-19 13:20 | Inpatient (IN) | payer OTHER | END 2022-03-21 09:03 | disposition still patient (30) | LOC: PAVB 13:20 | PROVIDERS: ADMIT Internal Medicine; ATTEND Internal Medicine ==

== ENCOUNTER 2022-02-21 05:02 | Outpatient (CLI) | payer OTHER | END 2022-02-21 19:15 | disposition home or self-care (01) | LOC: LAB 05:02 | PROVIDERS: ATTEND Internal Medicine | DX: M81.0 Age-related osteoporosis without current pathological fracture (principal) | CPT/HCPCS: 82310 ==

== ENCOUNTER 2022-03-12 05:55 | Outpatient (CLI) | payer OTHER | END 2022-03-12 19:18 | disposition home or self-care (01) | LOC: LAB 05:55 | PROVIDERS: ATTEND Internal Medicine | DX: M89.8X8 Other specified disorders of bone, other site (principal) | CPT/HCPCS: 82310 ==

== ENCOUNTER 2022-03-21 10:56 | Inpatient (IN) | payer OTHER | END 2022-04-21 09:15 | disposition still patient (30) | LOC: PAVB 10:56 | PROVIDERS: ADMIT Internal Medicine; ATTEND Internal Medicine ==

== ENCOUNTER 2022-04-21 11:25 | Inpatient (IN) | payer OTHER ==
[2022-05-08] MEDS ORDERED: [UNRECOGNIZED DRUG - OTHER] PEG (09:37)
== END 2022-05-22 09:01 | disposition still patient (30) ==
LOC: PAVB 11:25
PROVIDERS: ADMIT Internal Medicine; ATTEND Internal Medicine

== ENCOUNTER 2022-04-22 11:27 | Outpatient (CLI) | payer OTHER ==
[2022-04-22 11:58] LABS: POTASSIUM 4.5 mmol/L (3.6-5.2)
== END 2022-04-22 19:05 | disposition home or self-care (01) ==
LOC: LAB 11:27
PROVIDERS: ATTEND Internal Medicine
DX: E11.9 Type 2 diabetes mellitus without complications (principal); G20 Parkinson's disease; Z79.899 Other long term (current) drug therapy
CPT/HCPCS: 80053; 83036

== ENCOUNTER 2022-05-06 14:58 | Observation (INO) | payer OTHER ==
[~2022-05-06] VITALS: Ht 170.2 cm; Wt 73.1 kg
[2022-05-06] VITALS (10 sets, daily range): BP systolic 119–138; BP diastolic 48–72; TEMP 99.1–100.4; Ht 170.2 cm; Wt 73.1 kg
[2022-05-06 15:50] LABS: PLATELET COUNT 201 K/uL (152-353)
[2022-05-06 15:55] LABS: POTASSIUM 3.9 mmol/L (3.6-5.2)
[2022-05-07] VITALS: BP 138/53; TEMP 99
[2022-05-07 04:00] VITALS: BP 130/55; TEMP 98.3
[2022-05-07 07:55] VITALS: BP 149/42; TEMP 96.9
[2022-05-07 12:17] VITALS: BP 128/43; TEMP 98.7
[2022-05-07 15:55] VITALS: BP 134/32; TEMP 98.9
[2022-05-07 20:00] VITALS: BP 129/44; TEMP 98.8
[2022-05-08 00:02] VITALS: BP 120/42; TEMP 99.5
[2022-05-08 04:00] VITALS: BP 131/43; TEMP 98
[2022-05-08 07:44] VITALS: BP 128/57; TEMP 98.2
[2022-05-08] MEDS ORDERED: [UNRECOGNIZED DRUG - OTHER] PEG (09:37)
== END 2022-05-08 11:38 ==
LOC: ED 14:58 → MED/SURG 17:45
PROVIDERS: Emergency Medicine; ADMIT Internal Medicine; ATTEND Internal Medicine
PROC: 0D20XUZ Change Feeding Device in Upper Intestinal Tract, External Approach (ICD-10-PCS; principal; 2022-05-07)
DX: K94.29 Other complications of gastrostomy (principal); E86.0 Dehydration; I10 Essential (primary) hypertension; E03.8 Other specified hypothyroidism; R53.81 Other malaise; I48.91 Unspecified atrial fibrillation; F03.90 Unspecified dementia, unspecified severity, without behavioral disturbance, psychotic disturbance, mood disturbance, and anxiety; R13.19 Other dysphagia
CPT/HCPCS: 51702; 80048; 82948; 85027; 87635; 96376; 99220; 99284; G0378; J3490; U0003

== ENCOUNTER 2022-05-22 10:50 | Inpatient (IN) | payer OTHER ==
[~2022-05-22 10:50] MED LIST changes: +[UNRECOGNIZED DRUG - OTHER] PEG
== END 2022-06-21 10:24 | disposition still patient (30) ==
LOC: PAVB 10:50
PROVIDERS: ADMIT Internal Medicine Endocrinology, Diabetes & Metabolism; ATTEND Internal Medicine Endocrinology, Diabetes & Metabolism

== ENCOUNTER 2022-06-21 12:21 | Inpatient (IN) | payer OTHER | END 2022-07-22 14:34 | disposition still patient (30) | LOC: PAVB 12:21 | PROVIDERS: ADMIT Internal Medicine Endocrinology, Diabetes & Metabolism; ATTEND Internal Medicine Endocrinology, Diabetes & Metabolism ==

== ENCOUNTER 2022-07-10 11:10 | Emergency (ER) | payer OTHER ==
[~2022-07-10] VITALS: Ht 170.2 cm; Wt 73.0 kg
[2022-07-10 11:10] VITALS: TEMP 97.9
[2022-07-10 14:43] LABS: PLATELET COUNT 261 K/uL (152-353)
[2022-07-10 16:10] LABS: PARTIAL THROMBOPLASTIN TIME 25.6 SECONDS (24.5-33.6)
[2022-07-10 16:52] VITALS: BP 154/59
== END 2022-07-10 16:52 | disposition short-term general hospital (02) ==
LOC: ED 11:10
PROVIDERS: Emergency Medicine
PROC: 0DH67UZ Insertion of Feeding Device into Stomach, Via Natural or Artificial Opening (ICD-10-PCS; principal; 2022-07-10)
DX: K94.29 Other complications of gastrostomy (principal); Y83.3 Surgical operation with formation of external stoma as the cause of abnormal reaction of the patient, or of later complication, without mention of misadventure at the time of the procedure; Y92.128 Other place in nursing home as the place of occurrence of the external cause
CPT/HCPCS: 80053; 85027; 85610; 85730; 99283

== ENCOUNTER → 2022-07-22 | Outpatient (CLI) | payer OTHER ==
[2022-07-22 13:30] LABS: PLATELET COUNT 177 K/uL (152-353)
== END ==
LOC: LAB 13:13
PROVIDERS: ATTEND Internal Medicine Endocrinology, Diabetes & Metabolism
DX: E78.49 Other hyperlipidemia (principal); E87.6 Hypokalemia; I51.7 Cardiomegaly; I12.9 Hypertensive chronic kidney disease with stage 1 through stage 4 chronic kidney disease, or unspecified chronic kidney disease; E11.9 Type 2 diabetes mellitus without complications; N18.9 Chronic kidney disease, unspecified
CPT/HCPCS: 83036; 85027

== ENCOUNTER 2022-07-23 05:45 | Outpatient (CLI) | payer OTHER | END 2022-07-23 20:38 | disposition home or self-care (01) | LOC: LAB 05:45 | PROVIDERS: ATTEND Internal Medicine Endocrinology, Diabetes & Metabolism | DX: E78.49 Other hyperlipidemia (principal); E87.6 Hypokalemia; I51.7 Cardiomegaly; I12.9 Hypertensive chronic kidney disease with stage 1 through stage 4 chronic kidney disease, or unspecified chronic kidney disease; N18.2 Chronic kidney disease, stage 2 (mild) | CPT/HCPCS: 80053; 80061; 83735; 84443 ==

== ENCOUNTER 2022-08-20 16:42 | Outpatient (CLI) | payer OTHER | END 2022-08-20 19:44 | disposition home or self-care (01) | LOC: RAD 16:42 | PROVIDERS: ATTEND Internal Medicine Endocrinology, Diabetes & Metabolism | DX: R14.0 Abdominal distension (gaseous) (principal); Z93.1 Gastrostomy status ==

== ENCOUNTER 2022-08-21 16:57 | Emergency (ER) | payer OTHER ==
[~2022-08-21] VITALS: Ht 170.2 cm; Wt 73.0 kg
[2022-08-21 18:01] LABS: PLATELET COUNT 235 K/uL (152-353)
[2022-08-21 18:03] LABS: POTASSIUM 3.7 mmol/L (3.6-5.2); SODIUM 141 mmol/L (136-145)
[2022-08-21 21:15] VITALS: BP 168/94; TEMP 98.4
== END 2022-08-21 21:45 | disposition short-term general hospital (02) ==
LOC: ED 16:57
PROVIDERS: Emergency Medicine
DX: K56.7 Ileus, unspecified (principal); Z11.52 Encounter for screening for COVID-19
CPT/HCPCS: 80053; 85027; 87635; 99283; Q9963; U0003